=== PATIENT | female | born 1960 | race Caucasian/White ===

== ENCOUNTER 2018-07-07 11:54 | Emergency (ER) | payer BC ==
[~2018-07-07] VITALS: Ht 162.6 cm; Wt 75.0 kg
[2018-07-07 12:07] VITALS: Ht 162.6 cm; Wt 75.0 kg
[2018-07-07] MEDS ORDERED: HYDROCHLOROTHIA25 MG PO (12:08)
[2018-07-07] MEDS ORDERED: KLONOPIN1 MG (12:09)
[2018-07-07] MEDS ORDERED: LISINOPRIL2.5 MG EACH EYE (12:09)
[2018-07-07] MEDS ORDERED: AMBIEN10 MG PO (12:10)
[2018-07-07 12:49] LABS: BASOPHILS 0.2 % (0-2); EOSINOPHILS 0.8 % (0-7); HEMATOCRIT 41.1 % (36.0-48.0); HEMOGLOBIN 14.1 g/dL (12-16); IMMATURE GRANULOCYTES 0.4 % (0-5); LYMPHOCYTES 11.1 % (15-50); MCH 31.6 pg (26.0-34.0); MCHC 34.3 g/dL (31.0-37.0); MCV 92.2 fL (80.0-100.0); MEAN PLATELET VOLUME 9.8 fL (7.4-10.4); MONOCYTES 7.8 % (2-11); NEUTROPHILS 79.7 % (40-80); PLATELET COUNT 280 10x3/uL (130-400); RBC 4.46 10x6/uL (4.00-5.40); RDW 16.3 % (11.5-14.5); WBC 9.1 10x3/uL (4.8-10.8)
[2018-07-07 13:02] LABS: ALKALINE PHOSPHATASE 96 U/L (46-116); ALT (SGPT) 82 U/L (10-68); BILIRUBIN - TOTAL 0.44 mg/dL (0.2-1.3); CALC OSMOLALITY 269 mosm/kg (275-300); CALCIUM 9.9 mg/dL (8.5-10.1); CARBON DIOXIDE 29.8 mmol/L (21.0-32.0); CHLORIDE - SERUM 97 mmol/L (98-107); CREATININE - SERUM 0.8 mg/dL (0.6-1.3); GLUCOSE 119 mg/dL (74-106); POTASSIUM - SERUM 3.8 mmol/L (3.5-5.1); PROTEIN - SERUM 8.3 g/dL (6.4-8.2); SODIUM 135 mmol/L (136-145); UREA NITROGEN 10 mg/dL (7-18); eGFR NON AFRICAN AMERICAN 78 mL/min (90-120)
[2018-07-07 13:06] LABS: AMYLASE - SERUM 62 U/L (25-115); LIPASE 238 U/L (73-393); TROPONIN-I < 0.017 ng/mL (0.000-0.060)
[2018-07-07 15:21] LABS: APPEARANCE HAZY (CLEAR); BILIRUBIN NEGATIVE (NEGATIVE); COLOR STRAW (YELLOW); GLUCOSE NEGATIVE (NEGATIVE); KETONE SMALL mg/dL (NEGATIVE); NITRITE NEGATIVE (NEGATIVE); PH 5.5 (5.0-6.0); PROTEIN NEGATIVE (NEGATIVE); UROBILINOGEN NORMAL (NORMAL)
[2018-07-07 15:28] LABS: BACTERIA FEW /hpf (NONE SEEN); EPITHELIAL CELLS OCC /hpf (0-5); RED CELLS - URINE OCC /hpf (0-5); WHITE CELLS - URINE RARE /hpf (0-5)
[2018-07-07] MEDS ORDERED: CIPRO500 MG PO (16:07)
[2018-07-07] MEDS ORDERED: FLAGYL500 MG PO (16:07)
[2018-07-07 16:23] VITALS: BP 167/78
== END 2018-07-07 16:23 | disposition home or self-care (01) ==
LOC: D.ER 11:54
PROVIDERS: Family Medicine
DX: K92.2 Gastrointestinal hemorrhage, unspecified (principal); R10.31 Right lower quadrant pain; R10.32 Left lower quadrant pain

== ENCOUNTER → 2019-09-29 07:29 | Outpatient (CLI) | payer BC ==
[2018-07-07 12:07] VITALS: BMI 28.4
[~2019-09-29 07:29] MED LIST: AMBIEN10 MG PO; CIPRO500 MG PO; FLAGYL500 MG PO; HYDROCHLOROTHIA25 MG PO; KLONOPIN1 MG; LISINOPRIL2.5 MG EACH EYE
== END | disposition home or self-care (01) ==
LOC: D.US 09-09 13:40
PROVIDERS: ATTEND Family Medicine
DX: N93.9 Abnormal uterine and vaginal bleeding, unspecified (principal)

== ENCOUNTER → 2020-05-31 08:29 | Outpatient (CLI) | payer BC ==
[2018-07-07 12:07] VITALS: BMI 28.4
== END | disposition home or self-care (01) ==
LOC: D.US 08:29
PROVIDERS: ATTEND Family Medicine
DX: R10.11 Right upper quadrant pain (principal)